=== PATIENT | male | born 2000 | race Caucasian/White ===

== ENCOUNTER 2022-02-05 08:21 | Emergency (ER) | payer OTHER ==
[2022-02-05] MEDS ORDERED: Bacitracin Oint 1 GM U/D Packet TOP ONE (08:44)
== END 2022-02-05 09:02 | disposition home or self-care (01) ==
LOC: DL.ED 08:21
DX: S61.215A Laceration without foreign body of left ring finger without damage to nail, initial encounter (principal); W26.8XXA Contact with other sharp object(s), not elsewhere classified, initial encounter
CPT/HCPCS: 99282